=== PATIENT | female | born 1935 | race Caucasian/White ===

== ENCOUNTER 2022-04-02 14:36 | Inpatient (IN) | payer OTHER ==
[~2022-04-02] VITALS: Ht 152.4 cm; Wt 128.9 kg
[2022-04-02 14:40] VITALS: BP_SYST 220
[2022-04-02] MEDS ORDERED: MORPHINE 4 MG INJ. 4 MG/ML VIAL IVP ONE (14:45)
[2022-04-02] MEDS ORDERED: ONDANSETRON HCL 4 MG/2 ML VIAL IVP ONE (14:45)
[2022-04-02 15:10] LABS: BASOPHILS % (AUTO) 0.4 % (0.0-2.0); EOSINOPHILS % (AUTO) 0.8 % (0.0-4.0); HEMATOCRIT 40.9 % (36-48); HEMOGLOBIN 13.2 g/dL (12.0-16.0); LYMPHOCYTES # (AUTO) 0.7 K/uL (1.0-5.5); LYMPHOCYTES % (AUTO) 14.1 % (20.5-51.5); MEAN CORPUSCULAR HEMOGLOBIN 32 pg (27-31); MEAN CORPUSCULAR HGB CONC 32 % (32-36); MEAN CORPUSCULAR VOLUME 98 fL (79.0-98.0); MONOCYTES # (AUTO) 0.4 K/uL (0.0-1.0); MONOCYTES % (AUTO) 7.9 % (1.7-9.3); NEUTROPHILS # (AUTO) 3.8 K/uL (1.8-7.7); NEUTROPHILS % (AUTO) 76.8 % (40.0-70.0); PLATELET COUNT (AUTO) 111 K/uL (130-430); RED BLOOD CELL COUNT(AUTO) 4.19 MIL/uL (4.2-6.2); RED CELL DISTRIBUTION WIDTH 16.3 % (9.0-15.0); WHITE BLOOD COUNT (AUTO) 4.9 K/uL (4.8-10.8)
[2022-04-02 15:25] LABS: ANION GAP 10 (5-15); CALCIUM 9.4 mg/dL (8.4-11.0); CHLORIDE 102 mmol/L (98-107); CREATININE 0.94 mg/dL (0.55-1.30); GLUCOSE 192 mg/dL (70-99); UREA NITROGEN, BLOOD 26 mg/dL (8-21)
[2022-04-02 15:30] LABS: ALANINE AMINOTRANSFERASE 28 U/L (12-78); ASPARTATE AMINOTRANSFERASE 25 U/L (10-37); TOTAL BILIRUBIN 1.3 mg/dL (0.0-1.0)
[2022-04-02] MEDS ORDERED: FUROSEMIDE 40 MG/4 ML VIAL IVP ONE (16:30)
[2022-04-02] MEDS ORDERED: GLUCOSE (DEXTROSE) ORAL GEL -Adults PO PRN (18:00)
[2022-04-02] MEDS ORDERED: ACETAMINOPHEN 325 MG TABLET PO PRN ×2 (18:00→20:00)
[2022-04-02] MEDS ORDERED: D5W 1,000 ML IV PRN (18:00)
[2022-04-02] MEDS ORDERED: DEXTROSE 50% JECT 50 ML DISP.SYRIN IVP PRN (18:00)
[2022-04-02] MEDS ORDERED: ONDANSETRON HCL 4 MG/2 ML VIAL IVP PRN (18:00)
[2022-04-02] MEDS ORDERED: NEU300 PO (18:26)
[2022-04-02] MEDS ORDERED: METF-379 PO (18:26)
[2022-04-02] MEDS ORDERED: DITXL5 PO (18:26)
[2022-04-02] MEDS ORDERED: LOSA100T4 PO (18:26)
[2022-04-02] MEDS ORDERED: APIX5TAB PO (18:26)
[2022-04-02] MEDS ORDERED: HYDR-3927 PO (18:26)
[2022-04-02] MEDS ORDERED: METF-1069 PO (18:36)
[2022-04-02] MEDS ORDERED: GLIM4TAB37 PO (18:36)
[2022-04-02] MEDS ORDERED: METF-833 PO (18:36)
[2022-04-02] MEDS ORDERED: [UNRECOGNIZED DRUG - CODE] PO (18:37)
[2022-04-02] MEDS ORDERED: FUROSEMIDE 40 MG/4 ML VIAL IVP SCH (21:00)
[2022-04-02] MEDS ORDERED: INSULIN GLARGINE 100 UNITS/ML, 10 ML VIAL ONE (21:31)
[2022-04-02] MEDS: INSULIN REGULAR, HUMAN 100 UNITS/ML, 3 ML VIAL (humuLIN R) SUBCUT PRN (21:36)
[2022-04-02 22:22] VITALS: BP_SYST 124
[2022-04-03 07:17] LABS: BASOPHILS % (AUTO) 0.5 % (0.0-2.0); EOSINOPHILS # (AUTO) 0.1 K/uL (0.0-0.4); EOSINOPHILS % (AUTO) 1.6 % (0.0-4.0); HEMATOCRIT 35.8 % (36-48); HEMOGLOBIN 12.1 g/dL (12.0-16.0); LYMPHOCYTES # (AUTO) 1.3 K/uL (1.0-5.5); LYMPHOCYTES % (AUTO) 33.5 % (20.5-51.5); MEAN CORPUSCULAR HEMOGLOBIN 32 pg (27-31); MEAN CORPUSCULAR HGB CONC 34 % (32-36); MEAN CORPUSCULAR VOLUME 96 fL (79.0-98.0); MONOCYTES # (AUTO) 0.5 K/uL (0.0-1.0); MONOCYTES % (AUTO) 12.3 % (1.7-9.3); NEUTROPHILS # (AUTO) 2.1 K/uL (1.8-7.7); NEUTROPHILS % (AUTO) 52.1 % (40.0-70.0); PLATELET COUNT (AUTO) 102 K/uL (130-430); RED BLOOD CELL COUNT(AUTO) 3.74 MIL/uL (4.2-6.2); RED CELL DISTRIBUTION WIDTH 15.4 % (9.0-15.0)
[2022-04-03 07:22] LABS: ANION GAP 6 (5-15); CALCIUM 9.1 mg/dL (8.4-11.0); CHLORIDE 105 mmol/L (98-107); CREATININE 0.81 mg/dL (0.55-1.30); GLUCOSE 66 mg/dL (70-99); UREA NITROGEN, BLOOD 25 mg/dL (8-21)
[2022-04-03 07:32] LABS: ALANINE AMINOTRANSFERASE 24 U/L (12-78); ALBUMIN 3.3 g/dL (3.4-4.8); ASPARTATE AMINOTRANSFERASE 22 U/L (10-37); TOTAL BILIRUBIN 1.1 mg/dL (0.0-1.0)
[2022-04-03 08:00] VITALS: BP_SYST 134
[2022-04-03] MEDS ORDERED: NALOXONE HCL 0.4 MG/ML AMP (NARCAN) IVP PRN (08:30)
[2022-04-03] MEDS ORDERED: LISINOPRIL 10 MG TABLET (PRINIVIL) PO SCH (09:00)
[2022-04-03] MEDS ORDERED: NON-FORMULARY MEDICATION (Apixaban (Eliquis) 5 MG) PO SCH (09:00)
[2022-04-03] MEDS ORDERED: NON-FORMULARY MEDICATION (Glimepiride 4 MG) PO SCH (09:00)
[2022-04-03] MEDS: APIXABAN 2.5 MG TABLET PO SCH ×2 (09:55→22:21)
[2022-04-03] MEDS: LOSARTAN POTASSIUM 50 MG TABLET (COZAAR) PO SCH (09:57)
[2022-04-03] MEDS: FUROSEMIDE 40 MG TABLET PO SCH (09:57)
[2022-04-03] MEDS: GABAPENTIN 300 MG CAPSULE PO SCH ×2 (09:58→22:19)
[2022-04-03 11:40] VITALS: BP_SYST 143
[2022-04-03] MEDS: HYDROcodone/ACETAMIN 10-325 MG TAB PO SCH ×2 (12:00→18:00)
[2022-04-03 15:40] VITALS: BP_SYST 135
[2022-04-03 21:00] VITALS: BP_SYST 154
[2022-04-03] MEDS: oxyBUTYnin chloride 5 MG TABLET PO SCH (22:19)
[2022-04-04] MEDS: HYDROcodone/ACETAMIN 10-325 MG TAB PO SCH ×4 (00:21→17:26)
[2022-04-04 00:36] VITALS: BP_SYST 133
[2022-04-04 07:30] LABS: ALANINE AMINOTRANSFERASE 21 U/L (12-78); ALBUMIN 3.1 g/dL (3.4-4.8); ANION GAP 5 (5-15); ASPARTATE AMINOTRANSFERASE 21 U/L (10-37); CALCIUM 9.2 mg/dL (8.4-11.0); CHLORIDE 103 mmol/L (98-107); CHOLESTEROL 119 mg/dL (<200); CREATININE 0.96 mg/dL (0.55-1.30); GLUCOSE 100 mg/dL (70-99); HDL CHOLESTEROL 53 mg/dL (>55); THYROID STIMULATING HORMONE 1.78 uIu/mL (0.34-4.82); TOTAL BILIRUBIN 1.1 mg/dL (0.0-1.0); TRIGLYCERIDES 61 mg/dL (30-150); UREA NITROGEN, BLOOD 23 mg/dL (8-21)
[2022-04-04 08:00] VITALS: BP_SYST 136
[2022-04-04] MEDS: GABAPENTIN 300 MG CAPSULE PO SCH ×2 (10:19→22:10)
[2022-04-04] MEDS: oxyBUTYnin chloride 5 MG TABLET PO SCH ×2 (10:19→22:11)
[2022-04-04] MEDS: LOSARTAN POTASSIUM 50 MG TABLET (COZAAR) PO SCH (10:19)
[2022-04-04] MEDS: FUROSEMIDE 40 MG TABLET PO SCH (10:20)
[2022-04-04] MEDS: APIXABAN 2.5 MG TABLET PO SCH ×2 (10:22→21:00)
[2022-04-04 17:29] VITALS: BP_SYST 140
[2022-04-04 22:32] VITALS: BP_SYST 133
[2022-04-05 01:40] VITALS: BP_SYST 135
[2022-04-05] MEDS: HYDROcodone/ACETAMIN 10-325 MG TAB PO SCH ×4 (05:01→05:04)
[2022-04-05] MEDS ORDERED: FURO-149 PO (05:43)
[2022-04-05 08:00] VITALS: BP_SYST 146
[2022-04-05 09:18] LABS: BASOPHILS % (AUTO) 0.2 % (0.0-2.0); EOSINOPHILS % (AUTO) 0.7 % (0.0-4.0); HEMATOCRIT 40.9 % (36-48); HEMOGLOBIN 13.3 g/dL (12.0-16.0); LYMPHOCYTES # (AUTO) 0.7 K/uL (1.0-5.5); LYMPHOCYTES % (AUTO) 13.4 % (20.5-51.5); MEAN CORPUSCULAR HEMOGLOBIN 31 pg (27-31); MEAN CORPUSCULAR HGB CONC 32 % (32-36); MEAN CORPUSCULAR VOLUME 96 fL (79.0-98.0); MONOCYTES # (AUTO) 0.5 K/uL (0.0-1.0); MONOCYTES % (AUTO) 9.6 % (1.7-9.3); NEUTROPHILS % (AUTO) 76.1 % (40.0-70.0); PLATELET COUNT (AUTO) 116 K/uL (130-430); RED BLOOD CELL COUNT(AUTO) 4.25 MIL/uL (4.2-6.2); RED CELL DISTRIBUTION WIDTH 15.3 % (9.0-15.0); WHITE BLOOD COUNT (AUTO) 5.2 K/uL (4.8-10.8)
[2022-04-05 10:20] LABS: ANION GAP 3 (5-15); CHLORIDE 96 mmol/L (98-107); CREATININE 0.85 mg/dL (0.55-1.30); GLUCOSE 118 mg/dL (70-99); UREA NITROGEN, BLOOD 20 mg/dL (8-21)
[2022-04-05] MEDS: LOSARTAN POTASSIUM 50 MG TABLET (COZAAR) PO SCH (11:20)
[2022-04-05] MEDS: oxyBUTYnin chloride 5 MG TABLET PO SCH ×2 (11:20→21:03)
[2022-04-05] MEDS: FUROSEMIDE 40 MG TABLET PO SCH (11:21)
[2022-04-05] MEDS: GABAPENTIN 300 MG CAPSULE PO SCH ×2 (11:21→21:03)
[2022-04-05] MEDS: HYDROcodone/ACETAMIN 10-325 MG TAB PO PRN ×2 (11:22→17:28)
[2022-04-05] MEDS: APIXABAN 2.5 MG TABLET PO SCH ×2 (11:38→21:03)
[2022-04-05 17:04] VITALS: BP_SYST 129
[2022-04-05] MEDS: INSULIN REGULAR, HUMAN 100 UNITS/ML, 3 ML VIAL (humuLIN R) SUBCUT PRN (21:03)
[2022-04-06 01:23] VITALS: BP_SYST 107; BP_SYST 129
[2022-04-06] MEDS: HYDROcodone/ACETAMIN 10-325 MG TAB PO PRN ×4 (01:31→20:45)
[2022-04-06 06:49] LABS: BASOPHILS % (AUTO) 0.4 % (0.0-2.0); EOSINOPHILS % (AUTO) 1.2 % (0.0-4.0); HEMOGLOBIN 12.6 g/dL (12.0-16.0); LYMPHOCYTES # (AUTO) 0.8 K/uL (1.0-5.5); LYMPHOCYTES % (AUTO) 22.3 % (20.5-51.5); MEAN CORPUSCULAR HEMOGLOBIN 32 pg (27-31); MEAN CORPUSCULAR HGB CONC 33 % (32-36); MEAN CORPUSCULAR VOLUME 96 fL (79.0-98.0); MONOCYTES # (AUTO) 0.5 K/uL (0.0-1.0); MONOCYTES % (AUTO) 14.5 % (1.7-9.3); NEUTROPHILS # (AUTO) 2.1 K/uL (1.8-7.7); NEUTROPHILS % (AUTO) 61.6 % (40.0-70.0); PLATELET COUNT (AUTO) 102 K/uL (130-430); RED BLOOD CELL COUNT(AUTO) 3.97 MIL/uL (4.2-6.2); RED CELL DISTRIBUTION WIDTH 15.3 % (9.0-15.0); WHITE BLOOD COUNT (AUTO) 3.5 K/uL (4.8-10.8)
[2022-04-06 07:07] LABS: ANION GAP 4 (5-15); CALCIUM 8.4 mg/dL (8.4-11.0); CHLORIDE 98 mmol/L (98-107); CREATININE 1.06 mg/dL (0.55-1.30); GLUCOSE 151 mg/dL (70-99); UREA NITROGEN, BLOOD 22 mg/dL (8-21)
[2022-04-06 08:00] VITALS: BP_SYST 125
[2022-04-06] MEDS: FUROSEMIDE 40 MG TABLET PO SCH (08:47)
[2022-04-06] MEDS: GABAPENTIN 300 MG CAPSULE PO SCH ×2 (08:47→20:46)
[2022-04-06] MEDS: oxyBUTYnin chloride 5 MG TABLET PO SCH ×2 (08:47→20:46)
[2022-04-06] MEDS: APIXABAN 2.5 MG TABLET PO SCH ×2 (08:49→20:55)
[2022-04-06] MEDS: LOSARTAN POTASSIUM 50 MG TABLET (COZAAR) PO SCH (08:50)
[2022-04-06] MEDS ORDERED: DIPHENHYDRAMINE HCL 25 MG CAPSULE PO PRN (09:15)
[2022-04-06] MEDS ORDERED: DOCUSATE SODIUM 100 MG CAPSULE PO ONE (09:15)
[2022-04-06 11:40] VITALS: BP_SYST 129
[2022-04-06] MEDS ORDERED: BISACODYL 10 MG/SUPPOSITORY RC PRN (16:45)
[2022-04-06 16:59] VITALS: BP_SYST 126
[2022-04-06 19:00] VITALS: BP_SYST 134
[2022-04-06 20:00] VITALS: BP_SYST 134
[2022-04-06] MEDS: INSULIN REGULAR, HUMAN 100 UNITS/ML, 3 ML VIAL (humuLIN R) SUBCUT PRN (20:55)
[2022-04-07] MEDS: HYDROcodone/ACETAMIN 10-325 MG TAB PO PRN ×4 (02:35→23:35)
[2022-04-07 06:45] LABS: BASOPHILS % (AUTO) 0.5 % (0.0-2.0); EOSINOPHILS # (AUTO) 0.1 K/uL (0.0-0.4); EOSINOPHILS % (AUTO) 2.3 % (0.0-4.0); HEMATOCRIT 38.4 % (36-48); HEMOGLOBIN 12.7 g/dL (12.0-16.0); LYMPHOCYTES # (AUTO) 1.2 K/uL (1.0-5.5); LYMPHOCYTES % (AUTO) 24.3 % (20.5-51.5); MEAN CORPUSCULAR HEMOGLOBIN 31 pg (27-31); MEAN CORPUSCULAR HGB CONC 33 % (32-36); MEAN CORPUSCULAR VOLUME 95 fL (79.0-98.0); MONOCYTES # (AUTO) 0.7 K/uL (0.0-1.0); MONOCYTES % (AUTO) 14.2 % (1.7-9.3); NEUTROPHILS # (AUTO) 2.8 K/uL (1.8-7.7); NEUTROPHILS % (AUTO) 58.7 % (40.0-70.0); PLATELET COUNT (AUTO) 103 K/uL (130-430); RED BLOOD CELL COUNT(AUTO) 4.04 MIL/uL (4.2-6.2); WHITE BLOOD COUNT (AUTO) 4.8 K/uL (4.8-10.8)
[2022-04-07 07:04] LABS: ALANINE AMINOTRANSFERASE 21 U/L (12-78); ALBUMIN 2.9 g/dL (3.4-4.8); ANION GAP 4 (5-15); ASPARTATE AMINOTRANSFERASE 21 U/L (10-37); CALCIUM 8.1 mg/dL (8.4-11.0); CHLORIDE 98 mmol/L (98-107); GLUCOSE 165 mg/dL (70-99); TOTAL BILIRUBIN 1.1 mg/dL (0.0-1.0); UREA NITROGEN, BLOOD 23 mg/dL (8-21)
[2022-04-07 08:00] VITALS: BP_SYST 149
[2022-04-07] MEDS: FUROSEMIDE 40 MG TABLET PO SCH (09:38)
[2022-04-07] MEDS: oxyBUTYnin chloride 5 MG TABLET PO SCH ×2 (09:38→21:37)
[2022-04-07] MEDS: APIXABAN 2.5 MG TABLET PO SCH ×2 (09:40→21:34)
[2022-04-07] MEDS: GABAPENTIN 300 MG CAPSULE PO SCH ×2 (09:40→21:34)
[2022-04-07] MEDS: LOSARTAN POTASSIUM 50 MG TABLET (COZAAR) PO SCH (09:40)
[2022-04-07] MEDS: DOCUSATE SODIUM 100 MG CAPSULE PO SCH (09:55)
[2022-04-07 11:15] VITALS: BP_SYST 140
[2022-04-07] MEDS: INSULIN REGULAR, HUMAN 100 UNITS/ML, 3 ML VIAL (humuLIN R) SUBCUT PRN ×3 (12:51→21:33)
[2022-04-07] MEDS ORDERED: POTASSIUM CHLORIDE 20 MEQ TAB.PRT.SR PO ONE (14:15)
[2022-04-07 15:40] VITALS: BP_SYST 120
[2022-04-07 20:00] VITALS: BP_SYST 132
[2022-04-08 00:27] VITALS: BP_SYST 137
[2022-04-08 04:06] VITALS: BP_SYST 122
[2022-04-08] MEDS: HYDROcodone/ACETAMIN 10-325 MG TAB PO PRN ×4 (05:32→23:58)
[2022-04-08 06:52] LABS: BASOPHILS % (AUTO) 0.3 % (0.0-2.0); EOSINOPHILS # (AUTO) 0.1 K/uL (0.0-0.4); EOSINOPHILS % (AUTO) 2.4 % (0.0-4.0); HEMATOCRIT 39.2 % (36-48); HEMOGLOBIN 12.9 g/dL (12.0-16.0); LYMPHOCYTES # (AUTO) 1.3 K/uL (1.0-5.5); LYMPHOCYTES % (AUTO) 24.7 % (20.5-51.5); MEAN CORPUSCULAR HEMOGLOBIN 31 pg (27-31); MEAN CORPUSCULAR HGB CONC 33 % (32-36); MEAN CORPUSCULAR VOLUME 95 fL (79.0-98.0); MONOCYTES # (AUTO) 0.8 K/uL (0.0-1.0); MONOCYTES % (AUTO) 15.3 % (1.7-9.3); NEUTROPHILS % (AUTO) 57.3 % (40.0-70.0); PLATELET COUNT (AUTO) 105 K/uL (130-430); RED BLOOD CELL COUNT(AUTO) 4.12 MIL/uL (4.2-6.2); WHITE BLOOD COUNT (AUTO) 5.2 K/uL (4.8-10.8)
[2022-04-08 07:21] LABS: ANION GAP 3 (5-15); CALCIUM 8.4 mg/dL (8.4-11.0); CHLORIDE 98 mmol/L (98-107); CREATININE 1.01 mg/dL (0.55-1.30); GLUCOSE 181 mg/dL (70-99); UREA NITROGEN, BLOOD 22 mg/dL (8-21)
[2022-04-08 07:59] VITALS: BP_SYST 146
[2022-04-08] MEDS: DOCUSATE SODIUM 100 MG CAPSULE PO SCH (09:32)
[2022-04-08] MEDS: LOSARTAN POTASSIUM 50 MG TABLET (COZAAR) PO SCH (09:33)
[2022-04-08] MEDS: oxyBUTYnin chloride 5 MG TABLET PO SCH ×2 (09:33→21:46)
[2022-04-08] MEDS: FUROSEMIDE 40 MG TABLET PO SCH (09:33)
[2022-04-08] MEDS: GABAPENTIN 300 MG CAPSULE PO SCH ×2 (09:33→21:49)
[2022-04-08] MEDS: APIXABAN 2.5 MG TABLET PO SCH ×2 (09:41→21:46)
[2022-04-08 11:25] VITALS: BP_SYST 135
[2022-04-08] MEDS: INSULIN REGULAR, HUMAN 100 UNITS/ML, 3 ML VIAL (humuLIN R) SUBCUT PRN ×3 (12:07→21:48)
[2022-04-08 15:35] VITALS: BP_SYST 117
[2022-04-08 20:00] VITALS: BP_SYST 147
[2022-04-09] VITALS (10 sets, daily range): BP systolic 80–127
[2022-04-09] MEDS: HYDROcodone/ACETAMIN 10-325 MG TAB PO PRN (06:03)
[2022-04-09] MEDS: INSULIN REGULAR, HUMAN 100 UNITS/ML, 3 ML VIAL (humuLIN R) SUBCUT PRN ×4 (06:16→20:27)
[2022-04-09] MEDS: LOSARTAN POTASSIUM 50 MG TABLET (COZAAR) PO SCH (09:00)
[2022-04-09] MEDS: FUROSEMIDE 40 MG TABLET PO SCH (09:00)
[2022-04-09] MEDS ORDERED: MILK OF MAGNESIA 30 ML UDC PO ONE (09:15)
[2022-04-09] MEDS ORDERED: BISACODYL 10 MG/SUPPOSITORY RC ONE (09:15)
[2022-04-09] MEDS: APIXABAN 2.5 MG TABLET PO SCH ×2 (10:02→20:27)
[2022-04-09] MEDS: DOCUSATE SODIUM 100 MG CAPSULE PO SCH (10:03)
[2022-04-09] MEDS: GABAPENTIN 300 MG CAPSULE PO SCH ×2 (10:04→20:16)
[2022-04-09] MEDS: oxyBUTYnin chloride 5 MG TABLET PO SCH ×2 (10:04→20:17)
[2022-04-09] MEDS: HYDROcodone/ACETAMIN 5-325 MG TAB (NORCO/ VICODIN) PO PRN ×2 (13:43→20:17)
[2022-04-10] MEDS ORDERED: DOCUSATE SODIUM 100 MG CAPSULE PO SCH (09:00)
== END 2022-04-09 21:23 | DRG 291 ==
LOC: SED 14:36 → STU 17:48 → SMU 04-06 23:32
PROVIDERS: ADMIT Family Medicine; ATTEND Family Medicine
DX: I11.0 Hypertensive heart disease with heart failure (principal); I50.31 Acute diastolic (congestive) heart failure; E66.2 Morbid (severe) obesity with alveolar hypoventilation; I48.20 Chronic atrial fibrillation, unspecified; Z68.43 Body mass index [BMI] 50.0-59.9, adult; M54.30 Sciatica, unspecified side; I16.0 Hypertensive urgency; M47.816 Spondylosis without myelopathy or radiculopathy, lumbar region; M16.11 Unilateral primary osteoarthritis, right hip; E11.9 Type 2 diabetes mellitus without complications; J44.9 Chronic obstructive pulmonary disease, unspecified; Z20.822 Contact with and (suspected) exposure to COVID-19; Z79.01 Long term (current) use of anticoagulants; Z79.84 Long term (current) use of oral hypoglycemic drugs; Z79.899 Other long term (current) drug therapy; Z86.711 Personal history of pulmonary embolism; Z87.891 Personal history of nicotine dependence; Z90.710 Acquired absence of both cervix and uterus
CPT/HCPCS: 36415; 71045; 72100-TC; 73502; 80048; 80053; 80061; 82550; 82962; 83037; 83880; 84443; 84484; 85025; 93005; 93306; 93970; 96374; 96375; 97110-GP; 97112-GP; 97116-GP; 97163-GP; 97530-GP; 99285; G0378; J1815; J1940; J2270; J2405; Q0163